=== PATIENT | female | born 1955 | race African-American/Black ===

== ENCOUNTER 2018-04-23 13:45 | Inpatient (IN) | payer MEDICAID, OTHER ==
[~2018-04-23] VITALS: Ht 170.2 cm; Wt 87.0 kg
[~2018-04-23 13:45] MED LIST: LURA40 PO
[2018-04-23 14:54] LABS: GLUCOSE,POINT OF CARE 88 MG/DL (70-110)
[2018-04-23] MEDS ORDERED: SODIUM CHLORIDE 0.9% 1,000 ML IV ONE ×3 (15:30→19:15)
[2018-04-23 15:39] LABS: BASOPHILS % (AUTO) 0.1 % (0.0-2.0); EOSINOPHILS % (AUTO) 0 % (1.0-6.0); HEMATOCRIT 34.4 % (36-46); HEMOGLOBIN 11.9 g/dL (12.0-16.0); LYMPHOCYTES # (AUTO) 0.7 K/uL (1.0-4.8); LYMPHOCYTES % (AUTO) 7.7 % (22.0-44.0); MEAN CORPUSCULAR HEMOGLOBIN 30.7 pg (26.0-34.0); MEAN CORPUSCULAR HGB CONC 34.5 G/dL (31.0-37.0); MEAN CORPUSCULAR VOLUME 89 fL (80-100); MONOCYTES # (AUTO) 0.9 K/uL (0.1-1.0); MONOCYTES % (AUTO) 9.6 % (2.0-9.0); NEUTROPHILS # (AUTO) 7.9 K/uL (1.8-7.7); NEUTROPHILS % (AUTO) 82.6 % (40.0-70.0); PLATELET COUNT (AUTO) 268 K/uL (150-450); RED BLOOD CELL COUNT(AUTO) 3.87 MIL/uL (4.00-5.20); RED CELL DISTRIBUTION WIDTH 12.9 % (11.5-14.5)
[2018-04-23 15:46] LABS: CREATININE 2.29 mg/dL (0.60-1.30); POTASSIUM 3.4 mmol/L (3.5-5.1)
[2018-04-23 16:05] LABS: INR 1.2 (0.9-1.1)
[2018-04-23 16:20] LABS: ALBUMIN 3.9 g/dL (3.4-5.0); BILIRUBIN,TOTAL 1.1 mg/dL (0.1-1.0); TOTAL PROTEIN, SERUM 8.1 g/dL (6.4-8.2)
[2018-04-23 16:57] LABS: APPEARANCE,URINE CLOUDY (CLEAR); GLUCOSE, URINE (UA) NEGATIVE (NEGATIVE); KETONES,URINE 40 mg/dL (NEGATIVE); LEUKOCYTE ESTERASE ,URINE NEGATIVE (NEGATIVE); NITRATE,URINE NEGATIVE (NEGATIVE); OCCULT BLOOD,URINE LARGE (NEGATIVE); PH,URINE 5.5 (5.0-8.0); PROTEIN,URINE POS 1+ (NEGATIVE)
[2018-04-23 17:02] LABS: AMPHET/METH SCREEN,URINE NEGATIVE (NEGATIVE); BARBITURATE SCREEN, URINE NEGATIVE (NEGATIVE); BENZODIAZEPINES SCREEN,URINE NEGATIVE (NEGATIVE); CANNABINOID SCREEN,URINE NEGATIVE (NEGATIVE); COCAINE SCREEN,URINE NEGATIVE (NEGATIVE); METHADONE SCREEN, URINE NEGATIVE (NEGATIVE); OPIATE SCREEN,URINE NEGATIVE (NEGATIVE); PHENCYCLIDINE SCREEN,URINE NEGATIVE (NEGATIVE)
[2018-04-23 17:34] LABS: BILIRUBIN,URINE PRELIM. POSITIVE (NEGATIVE)
[2018-04-23 17:35] LABS: AMORPHOUS SEDIMENT,UR Few /LPF (None Seen); BACTERIA,URINE Few /HPF (None Seen); RBC,URINE 0-2 /HPF (0-2); SQUAMOUS EPITHELIAL CELL,UR Few /LPF (None Seen)
[2018-04-23] MEDS ORDERED: 0.9% SODIUM CHLORIDE 10 ML SYRINGE IVP PRN ×2 (19:15→21:30)
[2018-04-23] MEDS ORDERED: ACETAMINOPHEN 325 MG TABLET PO PRN (19:15)
[2018-04-23] MEDS ORDERED: ONDANSETRON HCL 4 MG/2 ML VIAL IVP PRN ×2 (19:15→21:30)
[2018-04-23] MEDS: POTASSIUM CHLORIDE 20 MEQ ER TABLET PO ONE ×2 (20:24→20:32)
[2018-04-23 21:15] VITALS: BP 154/74
[2018-04-23] MEDS ORDERED: ZOLPIDEM TARTRATE 5 MG TABLET PO PRN (21:30)
[2018-04-23] MEDS ORDERED: SODIUM CHLORIDE 0.9% 1,000 ML IV SCH (21:30)
[2018-04-23] MEDS: POTASSIUM CHL 10 MEQ/WATER 50 ML IV SCH ×2 (22:41→23:49)
[2018-04-23 23:18] VITALS: BP 149/74
[2018-04-24 04:23] VITALS: BP 124/59
[2018-04-24 06:23] LABS: BASOPHILS % (AUTO) 0.7 % (0.0-2.0); EOSINOPHILS % (AUTO) 0.4 % (1.0-6.0); HEMOGLOBIN 11.2 g/dL (12.0-16.0); LYMPHOCYTES # (AUTO) 1.3 K/uL (1.0-4.8); LYMPHOCYTES % (AUTO) 17.7 % (22.0-44.0); MEAN CORPUSCULAR HEMOGLOBIN 31.3 pg (26.0-34.0); MEAN CORPUSCULAR HGB CONC 34.9 G/dL (31.0-37.0); MEAN CORPUSCULAR VOLUME 90 fL (80-100); MONOCYTES # (AUTO) 0.8 K/uL (0.1-1.0); MONOCYTES % (AUTO) 11.1 % (2.0-9.0); NEUTROPHILS % (AUTO) 70.1 % (40.0-70.0); PLATELET COUNT (AUTO) 228 K/uL (150-450); RED BLOOD CELL COUNT(AUTO) 3.57 MIL/uL (4.00-5.20)
[2018-04-24 06:51] LABS: ALBUMIN 3.3 g/dL (3.4-5.0); BILIRUBIN,TOTAL 0.9 mg/dL (0.1-1.0); CALCIUM, TOTAL 9.6 mg/dL (8.8-10.5); CREATININE 1.17 mg/dL (0.60-1.30); POTASSIUM 3.3 mmol/L (3.5-5.1); TOTAL PROTEIN, SERUM 6.9 g/dL (6.4-8.2)
[2018-04-24 07:36] VITALS: BP 144/82
[2018-04-24] MEDS: PANTOPRAZOLE SODIUM 40 MG/VIAL IVP SCH (08:45)
[2018-04-24] MEDS: DOCUSATE SODIUM 100 MG CAPSULE PO SCH ×2 (08:46→20:22)
[2018-04-24] MEDS ORDERED: POTASSIUM CHLORIDE 20 MEQ ER TABLET PO ONE (10:30)
[2018-04-24] MEDS: DEXTROSE 5%-WATER 1,000 ML IV SCH (10:59)
[2018-04-24] MEDS: POTASSIUM CHL 10 MEQ/WATER 50 ML IV PRN ×3 (11:19→14:07)
[2018-04-24 11:20] VITALS: BP 140/84
[2018-04-24 11:26] VITALS: BP 144/74
[2018-04-24 15:31] VITALS: BP 138/86
[2018-04-24 19:27] VITALS: BP 142/92
[2018-04-25 00:05] VITALS: BP 156/83
[2018-04-25] MEDS: DEXTROSE 5%-WATER 1,000 ML IV SCH (01:21)
[2018-04-25 05:41] VITALS: BP 136/70
[2018-04-25 07:16] LABS: ANION GAP 7 mmol/L (8-16); CALCIUM, TOTAL 9.3 mg/dL (8.8-10.5); CARBON DIOXIDE 26 mmol/L (22-29); CHLORIDE 110 mmol/L (98-107); CREATININE 0.96 mg/dL (0.60-1.30); GLOMERULAR FILTR. RATE CALC > 60 mL/min (>60); GLUCOSE,RANDOM 92 mg/dL (70-110); POTASSIUM 3.1 mmol/L (3.5-5.1); SODIUM SERUM 143 mmol/L (136-145); UREA NITROGEN, BLOOD 13 mg/dL (7-18)
[2018-04-25 07:33] LABS: % IRON SATURATION 15.9 % (22-44); IRON, SERUM 35 mcg/dL (50-175); TOTAL IRON BINDING CAPACITY 220 mcg/dL (250-450)
[2018-04-25 07:39] VITALS: BP 145/72
[2018-04-25 07:53] LABS: PHOSPHORUS 1.6 mg/dL (2.5-4.9)
[2018-04-25 07:54] LABS: CREATINE KINASE, TOTAL ONLY 1117 U/L (26-192)
[2018-04-25] MEDS ORDERED: MAGNESIUM SULFATE 1 GM in DEXTROSE 5%-WATER 50 ML IV ONE (08:00)
[2018-04-25] MEDS: POTASSIUM CHLORIDE 10 MEQ in DEXTROSE 5%-WATER 1,000 ML IV SCH (08:21)
[2018-04-25] MEDS: PANTOPRAZOLE SODIUM 40 MG/VIAL IVP SCH (08:22)
[2018-04-25] MEDS: DOCUSATE SODIUM 100 MG CAPSULE PO SCH ×2 (08:24→20:52)
[2018-04-25] MEDS ORDERED: SOD FERRIC GLUC COMPLX/SUCROSE 125 MG in SODIUM CHLORIDE 0.9% 100 ML IV SCH (09:30)
[2018-04-25] MEDS ORDERED: POTASSIUM CHLORIDE 20 MEQ ER TABLET PO PRN (10:15)
[2018-04-25] MEDS ORDERED: POTASSIUM CHL 10 MEQ/WATER 50 ML IV PRN (10:15)
[2018-04-25] MEDS ORDERED: MAGNESIUM SULFATE 4 GM/WATER 100 ML IV PRN (10:15)
[2018-04-25] MEDS ORDERED: MAGNESIUM OXIDE 400 MG TABLET PO PRN (10:15)
[2018-04-25] MEDS ORDERED: MAGNESIUM SULFATE 2 GM/WATER 50 ML IV PRN (10:15)
[2018-04-25 10:22] LABS: ALBUMIN 3.1 g/dL (3.4-5.0)
[2018-04-25] MEDS: TAMSULOSIN HCL 0.4 MG CAPSULE PO SCH ×2 (11:54→20:52)
[2018-04-25 12:22] VITALS: BP 146/71
[2018-04-25] MEDS ORDERED: LORazepam 2 MG/ML VIAL IM PRN (13:45)
[2018-04-25] MEDS: LORazepam 2 MG/ML VIAL IVP PRN (13:53)
[2018-04-25] MEDS: POTASSIUM CHL 10 MEQ/WATER 50 ML IV PRN ×5 (13:56→23:01)
[2018-04-25] MEDS ORDERED: HALOPERIDOL LACTATE 5 MG/ML VIAL IM PRN (15:30)
[2018-04-25 16:34] VITALS: BP 145/71
[2018-04-25 20:10] VITALS: BP 128/66
[2018-04-25] MEDS: HALOPERIDOL 5 MG TABLET PO SCH (20:52)
[2018-04-25] MEDS ORDERED: SODIUM CHLORIDE 0.9% 1,000 ML IV ONE (21:52)
[2018-04-26] MEDS: POTASSIUM CHLORIDE 10 MEQ in DEXTROSE 5%-WATER 1,000 ML IV SCH (00:08)
[2018-04-26] MEDS: POTASSIUM CHL 10 MEQ/WATER 50 ML IV PRN ×4 (00:08→19:40)
[2018-04-26 00:18] VITALS: BP 119/65
[2018-04-26 07:33] VITALS: BP 127/73
[2018-04-26] MEDS: DOCUSATE SODIUM 100 MG CAPSULE PO SCH ×2 (08:23→20:57)
[2018-04-26] MEDS: HALOPERIDOL 5 MG TABLET PO SCH ×2 (08:24→20:57)
[2018-04-26] MEDS: PANTOPRAZOLE SODIUM 40 MG/VIAL IVP SCH (08:24)
[2018-04-26] MEDS: TAMSULOSIN HCL 0.4 MG CAPSULE PO SCH ×2 (08:24→20:57)
[2018-04-26 08:36] LABS: ALANINE AMINOTRANSFERASE 62 U/L (12-78); ALBUMIN 2.9 g/dL (3.4-5.0); ALKALINE PHOSPHATASE 75 U/L (46-116); ANION GAP 8 mmol/L (8-16); ASPARTATE AMINOTRANSFERASE 59 U/L (15-37); BILIRUBIN,TOTAL 0.6 mg/dL (0.1-1.0); CALCIUM, TOTAL 9.3 mg/dL (8.8-10.5); CARBON DIOXIDE 25 mmol/L (22-29); CHLORIDE 108 mmol/L (98-107); CREATININE 0.84 mg/dL (0.60-1.30); GLOMERULAR FILTR. RATE CALC > 60 mL/min (>60); GLUCOSE,RANDOM 117 mg/dL (70-110); POTASSIUM 3.4 mmol/L (3.5-5.1); SODIUM SERUM 141 mmol/L (136-145); TOTAL PROTEIN, SERUM 6.4 g/dL (6.4-8.2); UREA NITROGEN, BLOOD 6 mg/dL (7-18)
[2018-04-26] MEDS ORDERED: MAGNESIUM SULFATE 1 GM in DEXTROSE 5%-WATER 50 ML IV ONE (09:15)
[2018-04-26] MEDS: LORazepam 2 MG/ML VIAL IVP PRN ×2 (09:40→17:30)
[2018-04-26] MEDS ORDERED: SODIUM CHLORIDE 0.9% 100 ML ONE (10:18)
[2018-04-26 15:37] VITALS: BP 133/79
[2018-04-26 19:50] VITALS: BP 131/76
[2018-04-26 23:10] VITALS: BP 122/68
[2018-04-27 03:50] VITALS: BP 128/72
[2018-04-27 07:39] LABS: ANION GAP 5 mmol/L (8-16); CALCIUM, TOTAL 9.5 mg/dL (8.8-10.5); CARBON DIOXIDE 26 mmol/L (22-29); CHLORIDE 109 mmol/L (98-107); CREATININE 0.89 mg/dL (0.60-1.30); GLOMERULAR FILTR. RATE CALC > 60 mL/min (>60); GLUCOSE,RANDOM 101 mg/dL (70-110); POTASSIUM 4.7 mmol/L (3.5-5.1); SODIUM SERUM 140 mmol/L (136-145); UREA NITROGEN, BLOOD 5 mg/dL (7-18)
[2018-04-27 08:07] VITALS: BP 134/78
[2018-04-27] MEDS ORDERED: MAGNESIUM SULFATE 2 GM/WATER 50 ML IV ONE (08:15)
[2018-04-27] MEDS ORDERED: MAGNESIUM OXIDE 400 MG TABLET PO ONE (08:15)
[2018-04-27] MEDS: TAMSULOSIN HCL 0.4 MG CAPSULE PO SCH ×2 (08:49→11:39)
[2018-04-27] MEDS: HALOPERIDOL 5 MG TABLET PO SCH ×2 (08:49→11:39)
[2018-04-27] MEDS: DOCUSATE SODIUM 100 MG CAPSULE PO SCH (09:00)
[2018-04-27] MEDS: PANTOPRAZOLE SODIUM 40 MG/VIAL IVP SCH (09:00)
[2018-04-27] MEDS ORDERED: HALOPERIDOL LACTATE 5 MG/ML VIAL IM ONE (11:45)
[2018-04-27 12:54] VITALS: BP 115/65
[2018-04-27] MEDS ORDERED: HALO5TAB2 PO (13:10)
== END 2018-04-27 15:00 | disposition home or self-care (01) | DRG 469 ==
LOC: EMS 13:46 → 5S 19:00 → 6N 04-26 18:05
PROVIDERS: ADMIT Internal Medicine; ATTEND Internal Medicine
DX: N17.9 Acute kidney failure, unspecified (principal); G93.40 Encephalopathy, unspecified; D68.9 Coagulation defect, unspecified; E87.0 Hyperosmolality and hypernatremia; E83.42 Hypomagnesemia; E87.8 Other disorders of electrolyte and fluid balance, not elsewhere classified; M62.82 Rhabdomyolysis; E86.0 Dehydration; E87.6 Hypokalemia; F41.9 Anxiety disorder, unspecified; D64.9 Anemia, unspecified; F31.2 Bipolar disorder, current episode manic severe with psychotic features; N13.30 Unspecified hydronephrosis; Z90.710 Acquired absence of both cervix and uterus; Z91.14 Patient's other noncompliance with medication regimen
CPT/HCPCS: 51702; 70450; 76770; 82043; 82570; 82607; 83540; 83550; 83735; 84100; 84132; 93005; 96360; 96361; 99285; C9113; J1630; J2060; J2916; J3475; J3480; J7030; J7050; J7060

== ENCOUNTER 2019-02-24 12:26 | Inpatient (IN) | payer OTHER ==
[~2019-02-24] VITALS: Ht 170.2 cm; Wt 83.4 kg
[~2019-02-24 12:26] MED LIST changes: +HALO5TAB2 PO; -LURA40 PO
[2019-02-24 13:21] LABS: BASOPHILS % (AUTO) 0.5 % (0.0-2.0); EOSINOPHILS % (AUTO) 0.1 % (1.0-6.0); HEMATOCRIT 34.9 % (36-46); HEMOGLOBIN 11.6 g/dL (12.0-16.0); LYMPHOCYTES # (AUTO) 1.2 K/uL (1.0-4.8); LYMPHOCYTES % (AUTO) 19.4 % (22.0-44.0); MEAN CORPUSCULAR HEMOGLOBIN 30.5 pg (26.0-34.0); MEAN CORPUSCULAR HGB CONC 33.3 G/dL (31.0-37.0); MEAN CORPUSCULAR VOLUME 92 fL (80-100); MONOCYTES # (AUTO) 0.7 K/uL (0.1-1.0); MONOCYTES % (AUTO) 10.9 % (2.0-9.0); NEUTROPHILS # (AUTO) 4.2 K/uL (1.8-7.7); NEUTROPHILS % (AUTO) 69.1 % (40.0-70.0); PLATELET COUNT (AUTO) 236 K/uL (150-450); RED BLOOD CELL COUNT(AUTO) 3.82 MIL/uL (4.00-5.20); RED CELL DISTRIBUTION WIDTH 12.9 % (11.5-14.5)
[2019-02-24 13:28] LABS: ANION GAP 14 mmol/L (8-16); CARBON DIOXIDE 21 mmol/L (22-29); CHLORIDE 109 mmol/L (98-107); CREATININE 1.16 mg/dL (0.60-1.30); GLOMERULAR FILTR. RATE CALC 57 mL/min (>60); GLUCOSE,RANDOM 114 mg/dL (70-110); POTASSIUM 3.1 mmol/L (3.5-5.1); SODIUM SERUM 144 mmol/L (136-145); UREA NITROGEN, BLOOD 31 mg/dL (7-18)
[2019-02-24 13:34] LABS: CALCIUM, TOTAL 11.7 mg/dL (8.8-10.5)
[2019-02-24 13:36] LABS: ALANINE AMINOTRANSFERASE 55 U/L (12-78); ALBUMIN 4.1 g/dL (3.4-5.0); ALKALINE PHOSPHATASE 79 U/L (46-116); ASPARTATE AMINOTRANSFERASE 154 U/L (15-37); BILIRUBIN,TOTAL 0.8 mg/dL (0.1-1.0); TOTAL PROTEIN, SERUM 7.7 g/dL (6.4-8.2)
[2019-02-24 13:37] LABS: ACETAMINOPHEN < 2 mcg/mL (10-30)
[2019-02-24 13:39] LABS: SALICYLATE 1.5 mg/dL (2.8-20.0)
[2019-02-24] MEDS ORDERED: POTASSIUM CHLORIDE 20 MEQ ER TABLET PO ONE (13:45)
[2019-02-24] MEDS ORDERED: SODIUM CHLORIDE 0.9% 1,000 ML IV ONE ×2 (13:45)
[2019-02-24] MEDS: SODIUM CHLORIDE 0.9% 1,000 ML IV SCH (14:37)
[2019-02-24] MEDS ORDERED: MAGNESIUM HYDROXIDE SUSPENSION 30 ML UDCUP PO PRN (14:45)
[2019-02-24] MEDS ORDERED: POTASSIUM CHL 10 MEQ/WATER 50 ML IV PRN (14:45)
[2019-02-24] MEDS ORDERED: ACETAMINOPHEN 325 MG TABLET PO PRN ×2 (14:45)
[2019-02-24] MEDS ORDERED: 0.9% SODIUM CHLORIDE 10 ML SYRINGE IVP PRN (14:45)
[2019-02-24] MEDS ORDERED: ONDANSETRON HCL 4 MG/2 ML VIAL IVP PRN (14:45)
[2019-02-24 17:48] VITALS: BP 158/91
[2019-02-24 20:31] VITALS: BP 165/74
[2019-02-24] MEDS: DOCUSATE SODIUM 100 MG CAPSULE PO SCH (21:00)
[2019-02-25] MEDS: POTASSIUM CHLORIDE 20 MEQ ER TABLET PO PRN (01:27)
[2019-02-25] MEDS: SODIUM CHLORIDE 0.9% 1,000 ML IV SCH ×2 (01:31→12:49)
[2019-02-25 05:44] LABS: BASOPHILS % (AUTO) 0.9 % (0.0-2.0); HEMATOCRIT 34.5 % (36-46); HEMOGLOBIN 11.7 g/dL (12.0-16.0); LYMPHOCYTES # (AUTO) 1.6 K/uL (1.0-4.8); LYMPHOCYTES % (AUTO) 24.9 % (22.0-44.0); MEAN CORPUSCULAR HEMOGLOBIN 31.1 pg (26.0-34.0); MEAN CORPUSCULAR HGB CONC 33.8 G/dL (31.0-37.0); MEAN CORPUSCULAR VOLUME 92 fL (80-100); MONOCYTES # (AUTO) 0.7 K/uL (0.1-1.0); MONOCYTES % (AUTO) 11.4 % (2.0-9.0); NEUTROPHILS # (AUTO) 3.8 K/uL (1.8-7.7); NEUTROPHILS % (AUTO) 59.8 % (40.0-70.0); PLATELET COUNT (AUTO) 205 K/uL (150-450); RED BLOOD CELL COUNT(AUTO) 3.76 MIL/uL (4.00-5.20); RED CELL DISTRIBUTION WIDTH 12.8 % (11.5-14.5)
[2019-02-25 06:05] LABS: ALANINE AMINOTRANSFERASE 45 U/L (12-78); ALBUMIN 3.6 g/dL (3.4-5.0); ALKALINE PHOSPHATASE 68 U/L (46-116); ANION GAP 10 mmol/L (8-16); ASPARTATE AMINOTRANSFERASE 108 U/L (15-37); BILIRUBIN,TOTAL 0.9 mg/dL (0.1-1.0); CALCIUM, TOTAL 10.3 mg/dL (8.8-10.5); CARBON DIOXIDE 22 mmol/L (22-29); CHLORIDE 110 mmol/L (98-107); CREATININE 0.84 mg/dL (0.60-1.30); GLOMERULAR FILTR. RATE CALC > 60 mL/min (>60); GLUCOSE,RANDOM 90 mg/dL (70-110); POTASSIUM 3.9 mmol/L (3.5-5.1); SODIUM SERUM 142 mmol/L (136-145); TOTAL PROTEIN, SERUM 6.9 g/dL (6.4-8.2); UREA NITROGEN, BLOOD 17 mg/dL (7-18)
[2019-02-25 07:37] VITALS: BP 158/73
[2019-02-25] MEDS: FAMOTIDINE 20 MG TABLET PO SCH (08:14)
[2019-02-25] MEDS: DOCUSATE SODIUM 100 MG CAPSULE PO SCH ×2 (08:14→20:24)
[2019-02-25 11:35] VITALS: BP 141/72
[2019-02-25 15:28] VITALS: BP 148/80
[2019-02-25 19:40] VITALS: BP 154/73
[2019-02-25] MEDS: HALOPERIDOL 10 MG TABLET PO SCH (20:23)
[2019-02-25] MEDS: BENZTROPINE MESYLATE 1 MG TABLET PO SCH (20:24)
[2019-02-25 22:04] VITALS: BP 164/91
[2019-02-25] MEDS ORDERED: DiphenhydrAMINE HCL 50 MG/ML VIAL IM ONE (22:30)
[2019-02-25] MEDS ORDERED: LORazepam 2 MG/ML VIAL IM ONE (22:30)
[2019-02-25] MEDS ORDERED: HALOPERIDOL LACTATE 5 MG/ML VIAL IM ONE (22:30)
[2019-02-25] MEDS ORDERED: HydrALAZINE HCL 20 MG/ML VIAL IVP PRN (23:15)
[2019-02-25 23:17] VITALS: BP 143/68
[2019-02-26 00:34] VITALS: BP 164/71
[2019-02-26 07:55] VITALS: BP 144/74
[2019-02-26] MEDS: BENZTROPINE MESYLATE 1 MG TABLET PO SCH ×2 (09:11→20:00)
[2019-02-26] MEDS: DOCUSATE SODIUM 100 MG CAPSULE PO SCH ×2 (09:11→20:00)
[2019-02-26] MEDS: FAMOTIDINE 20 MG TABLET PO SCH (09:11)
[2019-02-26] MEDS: SODIUM CHLORIDE 0.9% 1,000 ML IV SCH (10:51)
[2019-02-26 12:05] VITALS: BP 135/70
[2019-02-26 16:41] VITALS: BP 135/80
[2019-02-26] MEDS: HALOPERIDOL 10 MG TABLET PO SCH (20:00)
[2019-02-26 20:10] VITALS: BP 132/67
[2019-02-26 23:32] VITALS: BP 123/68
[2019-02-27 03:39] VITALS: BP 140/67
[2019-02-27 07:27] VITALS: BP 140/90
[2019-02-27 08:16] LABS: BASOPHILS % (AUTO) 1.1 % (0.0-2.0); EOSINOPHILS % (AUTO) 5.7 % (1.0-6.0); HEMATOCRIT 35.6 % (36-46); HEMOGLOBIN 11.7 g/dL (12.0-16.0); LYMPHOCYTES % (AUTO) 47.3 % (22.0-44.0); MEAN CORPUSCULAR HEMOGLOBIN 30.2 pg (26.0-34.0); MEAN CORPUSCULAR VOLUME 92 fL (80-100); MONOCYTES # (AUTO) 0.5 K/uL (0.1-1.0); MONOCYTES % (AUTO) 10.7 % (2.0-9.0); NEUTROPHILS # (AUTO) 1.5 K/uL (1.8-7.7); NEUTROPHILS % (AUTO) 35.2 % (40.0-70.0); PLATELET COUNT (AUTO) 239 K/uL (150-450); RED BLOOD CELL COUNT(AUTO) 3.88 MIL/uL (4.00-5.20)
[2019-02-27 08:34] LABS: ANION GAP 9 mmol/L (8-16); CALCIUM, TOTAL 10.7 mg/dL (8.8-10.5); CARBON DIOXIDE 24 mmol/L (22-29); CHLORIDE 107 mmol/L (98-107); CREATININE 0.91 mg/dL (0.60-1.30); GLOMERULAR FILTR. RATE CALC > 60 mL/min (>60); GLUCOSE,RANDOM 87 mg/dL (70-110); POTASSIUM 3.4 mmol/L (3.5-5.1); SODIUM SERUM 140 mmol/L (136-145); UREA NITROGEN, BLOOD 12 mg/dL (7-18)
[2019-02-27] MEDS: FAMOTIDINE 20 MG TABLET PO SCH (08:37)
[2019-02-27] MEDS: DOCUSATE SODIUM 100 MG CAPSULE PO SCH ×2 (08:38→19:57)
[2019-02-27] MEDS: BENZTROPINE MESYLATE 1 MG TABLET PO SCH ×2 (08:38→19:57)
[2019-02-27 08:47] LABS: ALANINE AMINOTRANSFERASE 34 U/L (12-78); ALBUMIN 3.5 g/dL (3.4-5.0); ALKALINE PHOSPHATASE 71 U/L (46-116); ASPARTATE AMINOTRANSFERASE 48 U/L (15-37); BILIRUBIN,TOTAL 0.5 mg/dL (0.1-1.0); FREE T4 (FREE THYROXINE) 1.02 ng/dL (0.76-1.46); THYROID STIMULATING HORMONE 14.52 uIU/mL (0.36-3.74); TOTAL PROTEIN, SERUM 6.8 g/dL (6.4-8.2)
[2019-02-27 11:38] VITALS: BP 137/75
[2019-02-27 16:09] VITALS: BP 132/65
[2019-02-27] MEDS: POTASSIUM CHLORIDE 20 MEQ ER TABLET PO PRN (18:06)
[2019-02-27 19:54] VITALS: BP 141/57
[2019-02-27] MEDS: HALOPERIDOL 10 MG TABLET PO SCH (19:57)
[2019-02-28 00:18] VITALS: BP 146/85
[2019-02-28 05:30] VITALS: BP 150/79
[2019-02-28 07:27] VITALS: BP 141/66
[2019-02-28] MEDS: DOCUSATE SODIUM 100 MG CAPSULE PO SCH ×2 (08:13→21:19)
[2019-02-28] MEDS: FAMOTIDINE 20 MG TABLET PO SCH (08:13)
[2019-02-28] MEDS: BENZTROPINE MESYLATE 1 MG TABLET PO SCH ×2 (08:13→21:19)
[2019-02-28] MEDS ORDERED: HALO10 PO (12:16)
[2019-02-28] MEDS ORDERED: LEVOTHYROXIN PO (12:16)
[2019-02-28] MEDS ORDERED: AMLO2.5T4 PO (12:16)
[2019-02-28] MEDS ORDERED: BENZ1TAB10 PO (12:16)
[2019-02-28 15:05] VITALS: BP 132/58
[2019-02-28 19:45] VITALS: BP 136/79
[2019-02-28] MEDS: HALOPERIDOL 10 MG TABLET PO SCH (21:19)
[2019-02-28 23:00] VITALS: BP 143/77
[2019-03-01 05:15] VITALS: BP 143/67
[2019-03-01 07:29] VITALS: BP 138/68
[2019-03-01] MEDS: FAMOTIDINE 20 MG TABLET PO SCH (08:02)
[2019-03-01] MEDS: DOCUSATE SODIUM 100 MG CAPSULE PO SCH (08:02)
[2019-03-01] MEDS: BENZTROPINE MESYLATE 1 MG TABLET PO SCH (08:02)
[2019-03-01 11:30] VITALS: BP 140/70
[2019-03-02] MEDS ORDERED: LEVOTHYROXINE SODIUM 25 MCG TABLET PO SCH (06:30)
== END 2019-03-01 14:20 | disposition home or self-care (01) | DRG 425 ==
LOC: EMS 12:26 → 5S 16:12 → 6N 17:27
PROVIDERS: ADMIT Internal Medicine; ATTEND Internal Medicine
DX: E83.52 Hypercalcemia (principal); F20.9 Schizophrenia, unspecified; E87.6 Hypokalemia; Z90.710 Acquired absence of both cervix and uterus; Z98.51 Tubal ligation status; F31.9 Bipolar disorder, unspecified; I10 Essential (primary) hypertension; E03.9 Hypothyroidism, unspecified
CPT/HCPCS: 83735; 83970; 84132; 84439; 84443; 93005; 99291; G0480; G0481; J1200; J1630; J2060; J7030